=== PATIENT | male | born 1955 | race Caucasian/White ===

== ENCOUNTER 2017-02-19 00:51 | Emergency (ER) | payer OTHER ==
[2017-02-19 00:51] VITALS: BMI 29.6
== END 2017-02-19 01:59 | disposition left against medical advice (07) ==
LOC: ED 00:51
DX: Z02.89 Encounter for other administrative examinations (principal); I10 Essential (primary) hypertension

== ENCOUNTER 2017-02-19 08:00 | Emergency (ER) | payer OTHER ==
[2017-02-19 08:00] VITALS: BMI 29.6
[2017-02-19 08:30] VITALS: TEMP 97.7
--- NOTE | 2017-02-19 08:46 | ED PDOC ---
Arrival/HPI - General Chief Complaint: Headache Time Seen by Provider: 02/19/17 08:03 Historian: Patient - History of Present Illness Narrative History of Present Illness (Text): 02/19/17 08:35 Alan Gee is a 61 year old male, whose past medical history includes hypertension, who presents to the emergency department complaining of a right- sided pressure headache the extends to the back of his head since last night. Patient states that he has had a diffuse headache for the last 10 days where he "feels hot", and it was only until last night that the headache stayed on the right side and down his neck. Patient indicates that he also has neck pain and is warm to the right-side of his head. Pain is worse when he move his neck. Denies trauma. Denies fever. Denies numbness or weakness.Patient notes that he is more tired and has had headaches before but not one-sided. Patient denies any light sensitivity, weakness, tingling, chest pain, SOB, arm pain, nausea, slurring, difficulty speaking, or any other complaints at this time. PMD: Dr. Mcneal Time/Duration: 24 hours Symptom Onset: Gradual Symptom Course: Unchanged Activities at Onset: Light Context: Home Past Medical History - Provider Review Nursing Documentation Reviewed: Yes - Infectious Disease Hx of Infectious Diseases: None - Tetanus Immunization Tetanus Immunization: Unknown - Cardiac Hx Cardiac Disorders: Yes Hx Hypertension: Yes - Pulmonary Hx Respiratory Disorders: No - Neurological Hx Neurological Disorder: No - HEENT Hx HEENT Disorder: No - Renal Hx Renal Disorder: No - Endocrine/Metabolic Hx Endocrine Disorders: No - Hematological/Oncological Hx Blood Disorders: No - Integumentary Hx Dermatological Disorder: No - Musculoskeletal/Rheumatological Hx Musculoskeletal Disorders: No - Gastrointestinal Hx Gastrointestinal Disorders: No - Genitourinary/Gynecological Hx Genitourinary Disorders: No - Psychiatric Hx Psychophysiologic Disorder: No Hx Depression: No Hx Emotional Abuse: No Hx Physical Abuse: No Hx Substance Use: No - Suicidal Assessment Feels Threatened In Home Enviroment: No Family/Social History - Physician Review Nursing Documentation Reviewed: Yes Family/Social History: No Known Family HX Smoking Status: Never Smoked Hx Alcohol Use: No Hx Substance Use: No Hx Substance Use Treatment: No Allergies/Home Meds Allergies/Adverse Reactions: Allergies No Known Allergies Allergy (Verified 02/19/17 08:24) Home Medications: Home Meds Medication Instructions Recorded Confirmed amLODIPine [Norvasc] 10 mg PO DAILY 12/11/16 02/19/17 Review of Systems - Review of Systems Constitutional: Fatigue. absent: Fevers, Night Sweats Eyes: absent: Vision Changes, Photophobia, Eye Pain ENT: absent: Hearing Changes Respiratory: absent: SOB, Cough Cardiovascular: absent: Chest Pain, MELENDEZ Gastrointestinal: absent: Abdominal Pain, Stool Changes Genitourinary Male: absent: Dysuria, Frequency, Hematuria Musculoskeletal: Neck Pain. absent: Arthralgias Skin: absent: Rash, Pruritis Neurological: Headache. absent: Dizziness, Focal Weakness, Gait Changes, Disequilibrium, Seizure Endocrine: absent: Diaphoresis Hemo/Lymphatic: absent: Adenopathy Psychiatric: absent: Anxiety, Depression Physical Exam - Physical Exam Narrative Physical Exam (Text): Head: Atraumatic. Normocephalic. Eyes: PERRL. EOMI. Conjunctivae are not pale. Visual acuity and gutierrez intact. ENT: Mucous membranes are moist and intact. Oropharynx is clear and symmetric. No dental pain. No facial edema or erythema. No droop. No pain with eye movements. Neck: Supple. Full ROM. No JVD. No lymphadenopathy. Palpable right sided paraspinal cervical tenderness. Cardiovascular: Regular rate. Regular rhythm. No murmurs, rubs, or gallops. Distal pulses are 2+ and symmetric. Pulmonary/Chest: No evidence of respiratory distress. Clear to auscultation bilaterally. No wheezing, rales or rhonchi. Chest wall nontender. Abdominal: Soft and non-distended. There is no tenderness. No rebound, guarding, or rigidity. No organomegaly. Good bowel sounds. Back: No CVA tenderness. No midline tenderness. No rash or edema. Extremities: No edema. No cyanosis. No clubbing. Full range of motion in all extremities. No calf tenderness. Distal pulses intact. Skin: Skin is warm and dry. No petechiae. No purpura. No vesicular rash noted to face or shoulder or neck. Neurological: Alert, awake, and oriented. No facial droop. No slurred speech. Normal gait. Motor strength intact and symmetric. No sensory deficits. Psychiatric: Good eye contact. Normal interaction, affect, and behavior. Vital Signs Reviewed: Yes Vital Signs Temp Pulse Resp BP Pulse Ox 02/19/17 11:45 68 18 140/62 98 02/19/17 10:21 67 18 142/57 L 97 02/19/17 08:25 97.7 F 77 17 164/99 H 98 Temperature: Afebrile Blood Pressure: Hypertensive Pulse: Regular Respiratory Rate: Normal Appearance: Positive for: Well-Appearing, Non-Toxic, Comfortable Pain Distress: Mild Mental Status: Positive for: Alert and Oriented X 3 Medical Decision Making ED Course and Treatment: 02/19/17 08:35 Impression: 61 year old male complaining of a right-sided pressure headache since last night. Differential Diagnosis included but are not limited to: Cervical Strain vs. Tension Headache Plan: -- Head CT w/o contrast -- Labs -- Reassess and disposition Prior Visits: Notes and results from previous visits were reviewed. Patient was last seen in the emergency department on 07/06/14 for laceration to right index finger. Patient was discharged home. Progress Notes: Patient is afebrile. Mildly hypertensive. Headache not thunderclap, not worst in life. Neuro exam is intact with serial exams. Suspect possible musculoskeletal component to symptoms as patient has some palpable neck pain. With toradol, pain improved, BP improved after cloniding. No chest pain or shortness of breath. No numbness or weakness. Patient already taking Norvasc for HTN. I communicated with his PMD Dr. Sia Mcneal, stressed to PMD and patient need for follow-up in 1-2 days for repeat BP and reassessment of symptoms. Comfortable with no distress on discharge. - Lab Interpretations Lab Results: 02/19/17 09:00 02/19/17 09:00 Lab Results 02/19/17 09:00: Sodium 140, Potassium 4.0, Chloride 101, Carbon Dioxide 27, Anion Gap 16, BUN 17, Creatinine 0.8, Est GFR ( Amer) > 60, Est GFR (Non- Af Amer) > 60, Random Glucose 117 H, Calcium 8.9, Total Bilirubin 0.6, AST 31, ALT 60 H, Alkaline Phosphatase 117, Total Protein 7.4, Albumin 4.3, Globulin 3.1 , Albumin/Globulin Ratio 1.4 02/19/17 09:00: WBC 6.6, RBC 5.54, Hgb 15.6, Hct 44.9, MCV 81.0, MCH 28.2, MCHC 34.7, RDW 12.5, Plt Count 184, MPV 9.8, Gran % 62.3, Lymph % (Auto) 27.9, Harris % (Auto) 6.0, Eos % (Auto) 3.3, Baso % (Auto) 0.5, Gran # 4.14, Lymph # 1.9, Harris # 0.4, Eos # 0.2, Baso # 0.03 I have reviewed the lab results: Yes - RAD Interpretation Radiology Orders: 02/19/17 08:40 HEAD W/O CONTRAST [CT] Stat - Medication Orders Current Medication Orders: Discontinued Medications Clonidine HCl (Catapres) 0.1 mg PO ONCE STA Stop: 02/19/17 10:15 Ketorolac Tromethamine (Toradol) 30 mg IVP ONCE ONE Stop: 02/19/17 09:27 Last Admin: 02/19/17 09:45 Dose: 30 mg MAR Pain Assessment Document 02/19/17 09:45 [facility] (Rec: 02/19/17 09:45 [facility] [id number]) Pain Reassessment Is this a pain reassessment? Yes IVP Administration Document 02/19/17 09:45 [facility] (Rec: 02/19/17 09:45 [facility] [id number]) Charges for Administration # of IVP Administrations 1 - Scribe Statement The provider has reviewed the documentation as recorded by the [place] Provider Scribe Attestation: All medical record entries made by the Scribe were at my direction and personally dictated by me. I have reviewed the chart and agree that the record accurately reflects my personal performance of the history, physical exam, medical decision making, and the department course for this patient. I have also personally directed, reviewed, and agree with the discharge instructions and disposition. Disposition/Present on Arrival - Present on Arrival Any Indicators Present on Arrival: No History of DVT/PE: No History of Uncontrolled Diabetes: No Urinary Catheter: No History of Decub. Ulcer: No History Surgical Site Infection Following: None - Disposition Have Diagnosis and Disposition been Completed?: Yes Diagnosis: Headache, Neck pain, Hypertension Disposition: HOME/ ROUTINE Disposition Time: 10:00 Patient Plan: Discharge Condition: GOOD Discharge Instructions (ExitCare): Acute Headache (ED), Cervical Radiculopathy (ED), Hypertension (ED) Additional Instructions: For any return of headache, any dental pain, any facial swelling or drooping, ANY VISUAL SYMPTOMS, ANY RASH, any numbness or weakness, any chest pain or shortness of breath, any unsteadiness, any persistent or worsening of symptoms, get rechecked. I discussed your case with Dr. Mcneal. Follow-up with Dr. Mcneal in 1-2 days for recheck of your blood pressure and your symptoms. Return to ED immediately for any return or worsening of your symptoms. Prescriptions: Naproxen 250 mg PO BID PRN #10 tablet PRN Reason: Pain, Mild (1-3) Referrals: Payton Mcneal MD [Family Provider] - Follow up with primary Forms: [employer] ([place])
--- NOTE | 2017-02-19 09:11 | CT ---
PROCEDURE: CT HEAD WITHOUT CONTRAST. HISTORY: headache, hypertension COMPARISON: None available. TECHNIQUE: Axial computed tomography images were obtained through the head/brain without intravenous contrast. Radiation dose: Total exam DLP = 855 mGy-cm. This CT exam was performed using one or more of the following dose reduction techniques: Automated exposure control, adjustment of the mA and/or kV according to patient size, and/or use of iterative reconstruction technique. FINDINGS: HEMORRHAGE: No intracranial hemorrhage. BRAIN: No mass effect or edema. No atrophy or chronic microvascular ischemic changes. VENTRICLES: Unremarkable. No hydrocephalus. CALVARIUM: Unremarkable. PARANASAL SINUSES: Unremarkable as visualized. No significant inflammatory changes. MASTOID AIR CELLS: Unremarkable as visualized. No inflammatory changes. OTHER FINDINGS: None. IMPRESSION: Normal CT of the Head.
[2017-02-19 09:27] LABS: BASO # 0.03 K/mm3 (0.0-2.0); BASO % 0.5 % (0.0-3.0); EOS # 0.2 (0.0-0.7); EOS % 3.3 % (1.5-5.0); GRAN # 4.14 (1.4-6.5); GRAN % 62.3 % (50.0-68.0); HEMOGLOBIN 15.6 g/dL (14.0-18.0); LYMPH # 1.9 (1.2-3.4); LYMPH % 27.9 % (22.0-35.0); MEAN CORPUSCULAR HEMOGLOBIN 28.2 pg (25.0-35.0); MEAN CORPUSCULAR HGB CONC 34.7 g/dl (31.0-37.0); MEAN PLATELET VOLUME 9.8 fl (7.0-11.0); MONO # 0.4 (0.1-0.6); RBC 5.54 10^6/uL (3.5-6.1); RED CELL DISTRIBUTION WIDTH 12.5 % (11.5-14.5); WHITE BLOOD COUNT 6.6 10^3/ul (4.5-11.0)
[2017-02-19 09:30] LABS: ALB/GLOB RATIO 1.4 (1.1-1.8); ALBUMIN 4.3 g/dL (3.0-4.8); ALT/SGPT 60 U/L (7-56); AST/SGOT 31 U/L (17-59); BLOOD UREA NITROGEN 17 mg/dL (7-21); CALCIUM 8.9 mg/dL (8.4-10.5); GFR AFRICAN-AMERICAN > 60; GFR NON-AFRICAN AMERICAN > 60
[2017-02-19 10:22] VITALS: RESP 18
[2017-02-19 16:33] VITALS: BP 140/62; PULSE 68; O2SAT 98
== END 2017-02-19 11:45 | disposition home or self-care (01) ==
LOC: ED 08:00
DX: I10 Essential (primary) hypertension (principal); R51 Headache; M54.2 Cervicalgia
CPT/HCPCS: 70450; 80053; 85025; 96374; 99285; J1885

== ENCOUNTER 2017-03-30 02:19 | Observation (INO) | payer OTHER ==
[2017-03-30 02:30] VITALS: BMI 28.3
--- NOTE | 2017-03-30 03:48 | ED PDOC ---
Arrival/HPI - General Chief Complaint: High Blood Pressure Time Seen by Provider: 03/30/17 03:05 Historian: Patient - History of Present Illness Narrative History of Present Illness (Text): 03/30/17 03:40 61 year old male, whose past medical history include hypertension, presents to the emergency department complaining of palpitations and elevated blood pressure that began a few days ago.States felt like "my heart stopped at times" . Patient denies any fever, chills, cough, chest pain, shortness of breath, nausea, vomiting, diarrhea, urinary symptoms, back pain, neck pain, headache, dizziness, or any other complaints. PMD: Dr. Mcneal Time/Duration: Other (few days ) Symptom Onset: Sudden Symptom Course: Unchanged Activities at Onset: Light Context: Home Past Medical History - Provider Review Nursing Documentation Reviewed: Yes - Infectious Disease Hx of Infectious Diseases: None - Tetanus Immunization Tetanus Immunization: Unknown - Cardiac Hx Cardiac Disorders: Yes Hx Hypertension: Yes - Pulmonary Hx Respiratory Disorders: No - Neurological Hx Neurological Disorder: No - HEENT Hx HEENT Disorder: No - Renal Hx Renal Disorder: No - Endocrine/Metabolic Hx Endocrine Disorders: No - Hematological/Oncological Hx Blood Disorders: No - Integumentary Hx Dermatological Disorder: No - Musculoskeletal/Rheumatological Hx Musculoskeletal Disorders: No - Gastrointestinal Hx Gastrointestinal Disorders: No - Genitourinary/Gynecological Hx Genitourinary Disorders: No - Psychiatric Hx Psychophysiologic Disorder: No Hx Depression: No Hx Emotional Abuse: No Hx Physical Abuse: No Hx Substance Use: No - Suicidal Assessment Feels Threatened In Home Enviroment: No Family/Social History - Physician Review Nursing Documentation Reviewed: Yes Family/Social History: No Known Family HX Smoking Status: Never Smoked Hx Alcohol Use: No Hx Substance Use: No Hx Substance Use Treatment: No Allergies/Home Meds Allergies/Adverse Reactions: Allergies No Known Allergies Allergy (Verified 02/19/17 08:24) Home Medications: Home Meds Medication Instructions Recorded Confirmed amLODIPine [Norvasc] 10 mg PO DAILY 12/11/16 03/30/17 Review of Systems - Physician Review All systems were reviewed & negative as marked: Yes - Review of Systems Constitutional: absent: Fevers, Other (Chills) Respiratory: absent: Cough Cardiovascular: Palpitations Gastrointestinal: absent: Diarrhea, Nausea, Vomiting Genitourinary Male: absent: Dysuria, Frequency, Hematuria Musculoskeletal: absent: Back Pain, Neck Pain Neurological: absent: Headache, Dizziness Physical Exam Vital Signs Reviewed: Yes Vital Signs Temp Pulse Resp BP Pulse Ox 03/30/17 15:45 79 18 129/79 96 03/30/17 11:44 73 18 146/89 03/30/17 11:15 73 18 146/89 96 03/30/17 10:36 131/80 03/30/17 10:00 98.6 F 70 16 119/77 99 03/30/17 09:30 69 18 128/79 100 03/30/17 07:30 64 18 125/78 98 03/30/17 07:07 97.7 F 67 18 127/84 95 03/30/17 04:20 97.7 F 68 16 137/83 97 Temperature: Afebrile Blood Pressure: Normal Pulse: Regular Respiratory Rate: Normal Appearance: Positive for: Well-Appearing, Non-Toxic, Comfortable Pain Distress: None Mental Status: Positive for: Alert and Oriented X 3 - Systems Exam Head: Present: Atraumatic, Normocephalic Pupils: Present: PERRL Extroacular Muscles: Present: EOMI Conjunctiva: Present: Normal Mouth: Present: Moist Mucous Membranes Neck: Present: Normal Range of Motion Respiratory/Chest: Present: Clear to Auscultation, Good Air Exchange. No: Respiratory Distress, Accessory Muscle Use Cardiovascular: Present: Regular Rate and Rhythm, Normal S1, S2. No: Murmurs Abdomen: Present: Normal Bowel Sounds. No: Tenderness, Distention, Peritoneal Signs Back: Present: Normal Inspection Upper Extremity: Present: Normal Inspection. No: Cyanosis, Edema Lower Extremity: Present: Normal Inspection. No: Edema Neurological: Present: GCS=15, CN II-XII Intact, Speech Normal Skin: Present: Warm, Dry, Normal Color. No: Rashes Psychiatric: Present: Alert, Oriented x 3, Normal Insight, Normal Concentration Medical Decision Making ED Course and Treatment: 03/30/17 03:40 Impression: 61 year old male presents complaining of palpitations and elevated blood pressure for the past few days. Plan: -- EKG -- Labs -- Chest X-ray -- Reassess and disposition Progress Notes: EKG shows NSR at 72 BPM with incomplete RBBB. No acute changes. Interpreted by me. 03/30/17 04:23 CXR Impression: As read by me, no acute processes. 03/30/17 05:27 Case discussed with medical concierge and Dr. Marquez who is aware and agrees with the plan. Accepts patient into his service. 03/30/17 05:55 Pt. on further interview now admits to a hx. of intermittent chest pain as well although stating he is pain free presently. - Lab Interpretations Lab Results: 03/30/17 03:35 03/30/17 03:35 Lab Results 03/30/17 03:35: WBC 7.5, RBC 5.39, Hgb 14.9, Hct 44.0, MCV 81.6, MCH 27.6, MCHC 33.9, RDW 13.3, Plt Count 167, MPV 10.2 03/30/17 03:35: Sodium 141, Potassium 3.6, Chloride 103, Carbon Dioxide 26, Anion Gap 15, BUN 15, Creatinine 0.8, Est GFR ( Amer) > 60, Est GFR (Non- Af Amer) > 60, Random Glucose 103, Calcium 9.1, Total Bilirubin 0.7, AST 30, ALT 56, Alkaline Phosphatase 111, Lactate Dehydrogenase 470, Total Creatine Kinase 113, Troponin I < 0.01, Total Protein 7.2, Albumin 4.2, Globulin 3.0, Albumin/Globulin Ratio 1.4 03/30/17 03:35: PT 11.6, INR 1.02, APTT 34.6 I have reviewed the lab results: Yes - RAD Interpretation Radiology Orders: 03/30/17 03:15 CHEST PORTABLE [RAD] Stat - EKG Interpretation Interpreted by ED Physician: Yes Type: 12 lead EKG - Medication Orders Current Medication Orders: Amlodipine Besylate (Norvasc) 10 mg PO DAILY [facility] Last Admin: 03/30/17 10:36 Dose: 10 mg LIZET Blood Pressure Document 03/30/17 10:36 ROSSI (Rec: 03/30/17 10:36 [id number]) Blood Pressure Blood Pressure (100/60-150/90) 131/80 Montelukast Sodium (Singulair) 10 mg PO HS DIRK Naproxen (Anaprox) 275 mg PO BID PRN PRN Reason: Pain, Mild (1-3) Last Admin: 03/30/17 17:40 Dose: 275 mg MAR Pain Assessment Document 03/30/17 17:40 (Rec: 03/30/17 17:40 [id number]) Pain Reassessment Is this a pain reassessment? No Presence of Pain Presence of Pain Yes Location Pain Location Body Manager Product Design Description Description Pressure Pantoprazole Sodium (Protonix Ec Tab) 40 mg PO 0600 [facility] Discontinued Medications Aspirin (Aspirin) 325 mg PO ONCE STA Stop: 03/30/17 05:58 Last Admin: 03/30/17 06:24 Dose: 325 mg - Scribe Statement The provider has reviewed the documentation as recorded by the Ren Schmitt Provider Scribe Attestation: All medical record entries made by the Ren were at my direction and personally dictated by me. I have reviewed the chart and agree that the record accurately reflects my personal performance of the history, physical exam, medical decision making, and the department course for this patient. I have also personally directed, reviewed, and agree with the discharge instructions and disposition. Disposition/Present on Arrival - Present on Arrival Any Indicators Present on Arrival: No History of DVT/PE: No History of Uncontrolled Diabetes: No Urinary Catheter: No History of Decub. Ulcer: No History Surgical Site Infection Following: None - Disposition Have Diagnosis and Disposition been Completed?: Yes Diagnosis: Heart palpitations, Chest pain Disposition: HOSPITALIZED Disposition Time: 05:26 Patient Plan: Observation Patient Problems: Current Active Problems Problem Status Onset Heart palpitations Acute Condition: STABLE
[2017-03-30 03:53] LABS: ALB/GLOB RATIO 1.4 (1.1-1.8); ALBUMIN 4.2 g/dL (3.0-4.8); ALT/SGPT 56 U/L (7-56); AST/SGOT 30 U/L (17-59); BLOOD UREA NITROGEN 15 mg/dL (7-21); CALCIUM 9.1 mg/dL (8.4-10.5); GFR AFRICAN-AMERICAN > 60; GFR NON-AFRICAN AMERICAN > 60
[2017-03-30 03:54] LABS: INR 1.02 (0.93-1.08); PARTIAL THROMBOPLASTIN TIME 34.6 Seconds (25.1-36.5); PROTHROMBIN TIME 11.6 SECONDS (9.4-12.5)
[2017-03-30 03:55] LABS: HEMOGLOBIN 14.9 g/dL (14.0-18.0); MEAN CELL VOLUME 81.6 fl (80.0-105.0); MEAN CORPUSCULAR HEMOGLOBIN 27.6 pg (25.0-35.0); MEAN CORPUSCULAR HGB CONC 33.9 g/dl (31.0-37.0); MEAN PLATELET VOLUME 10.2 fl (7.0-11.0); RBC 5.39 10^6/uL (3.5-6.1); RED CELL DISTRIBUTION WIDTH 13.3 % (11.5-14.5); WHITE BLOOD COUNT 7.5 10^3/ul (4.5-11.0)
[2017-03-30 04:04] LABS: TROPONIN I < 0.01 ng/mL
--- NOTE | 2017-03-30 06:58 | CP.PCM.HP ---
<TruongNhan ojeda - Last Filed: 03/30/17 06:26> History of Present Illness - History of Present Illness History of Present Illness: H/P For Dr. Marquez CC: Palpitations, CP HPI: 61 year old male with past medical history significant for seasonal allergies and hypertension presents with 3 day duration of left sided, non radiating 2/10 chest pain for which he did not take any medications. Patient also states that he feels like his 'heart stops' periodically. No shortness of breath, no other associated symptoms. Recent myocardial perfusion test normal, patient has never had an UT or Cath. Past Surgical History: denies Past Medical History: HTN, allergies Allergies: NKDA Social History: denies alcohol, illicits, tobacco Hospitalizations: recent negative stress test Family History: no extensive cardiac history, family in [place] Medications: xyzal, cingulair, amlodipine Review of Systems: 12 point ROS negative except HPI Present on Admission - Present on Admission Any Indicators Present on Admission: No Past Patient History - Infectious Disease Hx of Infectious Diseases: None - Tetanus Immunizations Tetanus Immunization: Unknown - Past Social History Smoking Status: Never Smoked - CARDIAC Hx Cardiac Disorders: Yes Hx Hypertension: Yes - PULMONARY Hx Respiratory Disorders: No - NEUROLOGICAL Hx Neurological Disorder: No - HEENT Hx HEENT Problems: No - RENAL Hx Chronic Kidney Disease: No - ENDOCRINE/METABOLIC Hx Endocrine Disorders: No - HEMATOLOGICAL/ONCOLOGICAL Hx Blood Disorders: No - INTEGUMENTARY Hx Dermatological Problems: No - MUSCULOSKELETAL/RHEUMATOLOGICAL Hx Musculoskeletal Disorders: No - GASTROINTESTINAL Hx Gastrointestinal Disorders: No - GENITOURINARY/GYNECOLOGICAL Hx Genitourinary Disorders: No - PSYCHIATRIC Hx Psychophysiologic Disorder: No Hx Depression: No Hx Emotional Abuse: No Hx Physical Abuse: No Hx Substance Use: No - SURGICAL HISTORY Hx Surgeries: No Meds Allergies/Adverse Reactions: Allergies Allergy/AdvReac Type Severity Reaction Status Date / Time No Known Allergies Allergy Verified 02/19/17 08:24 Physical Exam - Constitutional Appears: Well - Head Exam Head Exam: ATRAUMATIC, NORMAL INSPECTION, NORMOCEPHALIC - Eye Exam Eye Exam: EOMI, Normal appearance, PERRL Pupil Exam: NORMAL ACCOMODATION, PERRL - ENT Exam ENT Exam: Mucous Membranes Moist, Normal Exam - Neck Exam Neck exam: Positive for: Normal Inspection - Respiratory Exam Respiratory Exam: Clear to Auscultation Bilateral, NORMAL BREATHING PATTERN - Cardiovascular Exam Cardiovascular Exam: REGULAR RHYTHM - GI/Abdominal Exam GI & Abdominal Exam: Normal Bowel Sounds, Soft. absent: Tenderness - Rectal Exam Rectal Exam: NORMAL INSPECTION - Extremities Exam Extremities exam: Positive for: normal inspection - Back Exam Back exam: NORMAL INSPECTION - Neurological Exam Neurological exam: Alert, CN II-XII Intact, Normal Gait, Oriented x3, Reflexes Normal - Psychiatric Exam Psychiatric exam: Normal Affect, Normal Mood - Skin Skin Exam: Dry, Intact, Normal Color, Warm Results - Vital Signs Recent Vital Signs: Last Vital Signs Temp 97.7 F 03/30/17 04:20 Pulse 68 03/30/17 04:20 Resp 16 03/30/17 04:20 BP 137/83 03/30/17 04:20 Pulse Ox 97 03/30/17 04:20 - Labs Result Diagrams: 03/30/17 03:35 03/30/17 03:35 Assessment & Plan - Assessment and Plan (Free Text) Assessment: 61 year old male presenting with palpitations and chest pain of 3 day duration First troponin negative EKG shows incomplete RBBB. Recent myocardial perfusion normal. Plan: Chest Pain rule out ACS - F/u BEVERLY, EKG's Palpitations - F/u TSH Seasonal Allergies - Xyzal - Cingulair GI/DVT Prophylaxis - Protonix/SCDs <Milla Marquez - Last Filed: 03/30/17 07:28> Results - Vital Signs Recent Vital Signs: Last Vital Signs Temp 97.7 F 03/30/17 07:07 Pulse 67 03/30/17 07:07 Resp 18 03/30/17 07:07 BP 127/84 03/30/17 07:07 Pulse Ox 95 03/30/17 07:07 - Labs Result Diagrams: 03/30/17 03:35 03/30/17 03:35 Attending/Attestation - Attestation I have personally seen and examined this patient.: Yes I have fully participated in the care of the patient.: Yes I have reviewed all pertinent clinical information: Yes Notes (Text): 03/30/17 07:26 Patient was seen when he was in bed # 16 in the ER. Agree with history , physical examination, assessment and plan. Following are my impressions. Chest pain-left sided. Palpitations. Hypertension. Headaches. Common cold. Heart stops. Seasonal allergies. Family history Alzheimer's. Hyperopia. History of urine abnormal test. Incomplete right bundle branch block. Overweight with BMI 28.3 kg/m2.
[2017-03-30] MEDS ORDERED: Naproxen 275 mg Tab PO PRN (07:10)
--- NOTE | 2017-03-30 08:27 | CARD ---
APPROVED REPORT EKG Measurement Heart [id number] <Conclusion> Normal sinus rhythm RVCD
--- NOTE | 2017-03-30 09:42 | RAD ---
HISTORY: palpitations COMPARISON: No prior. FINDINGS: LUNGS: Mild bibasilar atelectasis and or scarring changes. PLEURA: No significant pleural effusion identified, no pneumothorax apparent. CARDIOVASCULAR: Normal. OSSEOUS STRUCTURES: No significant abnormalities. VISUALIZED UPPER ABDOMEN: Normal. OTHER FINDINGS: None. IMPRESSION: Mild bibasilar atelectasis or scarring changes.
[2017-03-30 12:40] LABS: TROPONIN I < 0.01 ng/mL
--- NOTE | 2017-03-30 13:43 | CON ---
DATE: 03/30/2017 LOCATION: Emergency room 600, bed 3. CHIEF COMPLAINT: Palpitation, chest discomfort. HISTORY OF PRESENT ILLNESS: A 61-year-old male, he is known to have hypertension since last 1 year on Norvasc 10 mg a day. He states since last three days he is feeling that from evening till morning he feels palpitation off and on, feel like heart skipping a beat, also sometime get dull chest pain. Denies any dizziness, shortness of breath, syncope. Patient is now lying flat in bed without any palpitations, chest pain, shortness of breath. PAST MEDICAL HISTORY: Patient known to have hypertension. PERSONAL HISTORY: Denies smoking, denies drinking, takes one cup of tea a day. ALLERGIES: PATIENT DENIES ANY MEDICATION ALLERGY. FAMILY HISTORY: Positive for hypertension. MEDICATIONS AT HOME: Norvasc 10 mg daily, sometime takes Naprosyn for pain. PHYSICAL EXAMINATION: VITAL SIGNS: Blood pressure 125/78, respirations 18, pulse 64, temperature 97.7. HEENT: Head is normocephalic. Eyes: Pupils are normal. Conjunctivae normal. Nose and throat normal. NECK: JVP low. Carotids are equal. THORAX: AP diameter normal. LUNGS: Clear. CARDIOVASCULAR: S1 and S2. ABDOMEN: Soft, nontender. No organomegaly. Bowel sounds normal. EXTREMITIES: No clubbing, no cyanosis. LABORATORY DATA AND IMAGING: WBC 7.5, hemoglobin 14.9, hematocrit 44.0 and platelets 167. Sodium 141, potassium 3.6, BUN 15, creatinine 0.8. Calcium, bilirubin, AST, ALT, troponin, total protein, albumin, globulin normal. EKG showed regular sinus rhythm. Patient had a nuclear stress test as outpatient on 12/11/2016, which was negative with normal LV ejection fraction of 72%. Patient also had echo in the office as outpatient. DIAGNOSES: Palpitation, atypical chest pain, hypertension. PLAN: Monitor the patient for any arrhythmia. Patient already on naproxen 275 b.i.d. p.r.n., amlodipine 10 daily, Protonix 40 daily, Singulair 10 mg at bedtime. We will do lipid profile and TSH. We will follow. Mohammad Hernandez, MD
[2017-03-30 17:50] LABS: TROPONIN I < 0.01 ng/mL
[2017-03-31 00:21] VITALS: RESP 20
[2017-03-31] MEDS ORDERED: Pantoprazole 40 mg EC Tab PO SCH (06:00)
[2017-03-31 06:10] VITALS: TEMP 98.5; O2SAT 94
[2017-03-31 06:19] LABS: HEMOGLOBIN 15.1 g/dL (14.0-18.0); MEAN CELL VOLUME 81.9 fl (80.0-105.0); MEAN CORPUSCULAR HGB CONC 34.2 g/dl (31.0-37.0); MEAN PLATELET VOLUME 10.3 fl (7.0-11.0); RBC 5.4 10^6/uL (3.5-6.1)
[2017-03-31 09:29] LABS: ALB/GLOB RATIO 1.3 (1.1-1.8); ALBUMIN 4.1 g/dL (3.0-4.8); ALT/SGPT 42 U/L (7-56); AST/SGOT 29 U/L (17-59); BLOOD UREA NITROGEN 19 mg/dL (7-21); CALCIUM 9.1 mg/dL (8.4-10.5); GFR AFRICAN-AMERICAN > 60; GFR NON-AFRICAN AMERICAN > 60; HDL CHOLESTEROL 32 mg/dL (29-60)
[2017-03-31 09:39] LABS: LDL CHOLESTEROL 87 mg/dL (0-129)
[2017-03-31 10:22] VITALS: BP 130/79
[2017-03-31] MEDS ORDERED: Metoprolol Succinate 25 mg XL Tab PO SCH (10:49)
[2017-03-31 11:50] VITALS: PULSE 82
--- NOTE | 2017-03-31 12:28 | PN ---
DATE: 03/31/2017 REASON FOR THE CONSULTATION AND FOLLOWUP: Palpitation. SUBJECTIVE: Patient denies any chest pain, shortness of breath, or any palpitations. OBJECTIVE: GENERAL: Not in apparent distress. VITAL SIGNS: Temperature is afebrile, heart rate , and blood pressure 120/78. HEENT: PERRLA, intact. NECK: Supple. No carotid bruit or thyromegaly. CHEST: Clear to auscultation. HEART: S1 and S2, regular. ABDOMEN: Soft. EXTREMITIES: Clubbing and cyanosis negative. LABORATORY DATA: Blood workup as follows: WBC 7, hemoglobin 15, hematocrit 44.2, and platelet count 159. Chemistry shows sodium 140, potassium is 3.9, chloride 105, carbon dioxide 26, anion gap of 13. BUN 19, creatinine 0.8. Troponin 0.01 x3 negative. Total cholesterol 152, LDL 87, HDL 32, triglycerides 210. TSH 2.79. IMPRESSION: Palpitation, atypical chest pain. No evidence of acute myocardial infarction. History of stress test on 12/11/2016, was negative. Normal left ventricular function. RECOMMENDATION: We will put low dose of beta-shashi starting now and we will discontinue telemetry. Further recommendation as outpatient. We will follow. Thank you for providing us the opportunity in taking care of patient, Alan Gee. Alan Acosta MD
--- NOTE | 2017-04-01 02:41 | CP.PCM.DIS ---
<Alexsander Fabian - Last Filed: 04/01/17 02:43> Provider - Provider Date of Admission: 03/30/17 05:27 Attending physician: Yonatan Trejo MD Consults: Cardiology: Dr. Lazaro Time Spent in preparation of Discharge (in minutes): 45 Diagnosis - Discharge Diagnosis (1) Right bundle branch block Status: Chronic Priority: High (2) Heart palpitations Status: Chronic Priority: Medium Hospital Course - Lab Results Lab Results: Most Recent Lab Values WBC 7.0 10^3/ul (4.5-11.0) 03/31/17 05:40 RBC 5.40 10^6/uL (3.5-6.1) 03/31/17 05:40 Hgb 15.1 g/dL (14.0-18.0) 03/31/17 05:40 Hct 44.2 % (42.0-52.0) 03/31/17 05:40 MCV 81.9 fl (80.0-105.0) 03/31/17 05:40 MCH 28.0 pg (25.0-35.0) 03/31/17 05:40 MCHC 34.2 g/dl (31.0-37.0) 03/31/17 05:40 RDW 13.0 % (11.5-14.5) 03/31/17 05:40 Plt Count 169 10^3/uL (120.0-450.0) 03/31/17 05:40 MPV 10.3 fl (7.0-11.0) 03/31/17 05:40 PT 11.6 SECONDS (9.4-12.5) 03/30/17 03:35 INR 1.02 (0.93-1.08) 03/30/17 03:35 APTT 34.6 Seconds (25.1-36.5) 03/30/17 03:35 Sodium 140 mmol/L (132-148) 03/31/17 09:00 Potassium 3.9 mmol/L (3.6-5.0) 03/31/17 09:00 Chloride 105 mmol/L (98-107) 03/31/17 09:00 Carbon Dioxide 26 mmol/L (21-33) 03/31/17 09:00 Anion Gap 13 (10-20) 03/31/17 09:00 BUN 19 mg/dL (7-21) 03/31/17 09:00 Creatinine 0.8 mg/dl (0.8-1.5) 03/31/17 09:00 Est GFR ( Amer) > 60 03/31/17 09:00 Est GFR (Non-Af Amer) > 60 03/31/17 09:00 Random Glucose 109 mg/dL (70-110) 03/31/17 09:00 Calcium 9.1 mg/dL (8.4-10.5) 03/31/17 09:00 Total Bilirubin 1.1 mg/dL (0.2-1.3) 03/31/17 09:00 AST 29 U/L (17-59) 03/31/17 09:00 ALT 42 U/L (7-56) 03/31/17 09:00 Alkaline Phosphatase 105 U/L (38-126) 03/31/17 09:00 Lactate Dehydrogenase 470 U/L (333-699) 03/30/17 03:35 Total Creatine Kinase 90 U/L (35-230) 03/30/17 17:23 Troponin I < 0.01 ng/mL 03/30/17 17:23 Total Protein 7.2 g/dL (5.8-8.3) 03/31/17 09:00 Albumin 4.1 g/dL (3.0-4.8) 03/31/17 09:00 Globulin 3.1 gm/dL 03/31/17 09:00 Albumin/Globulin Ratio 1.3 (1.1-1.8) 03/31/17 09:00 Triglycerides 210 mg/dL (35-160) H 03/31/17 09:00 Cholesterol 152 mg/dL (130-200) 03/31/17 09:00 LDL Cholesterol Direct 87 mg/dL (0-129) 03/31/17 09:00 HDL Cholesterol 32 mg/dL (29-60) 03/31/17 09:00 TSH 3rd Generation 2.79 mIU/mL (0.46-4.68) 03/31/17 05:40 - Hospital Course Hospital Course: Patient is a 61 male with past medical history significant for seasonal allergies and hypertension who presented with 3 day duration of left sided, non radiating 2/10 chest pain for which he did not take any medications. Patient also stated that he felt as if his 'heart stops' periodically. No shortness of breath, no other associated symptoms. Recent myocardial perfusion test and echocardiogram done with Dr. Hernandez as outpatient were found to be normal, patient has never had an WI or Cath. Patient was kept overnight for EKG monitoring. Overnight strips were reviewed by internal medicine and cardiology staff and no acute abnormalities were found to have taken place overnight. Patient was instructed to follow up with primary care physician and juke box servicer as outpatient regarding admission. Patient was in agreement with plan and discharged with metroprolol succinate and singulair. Case reviewed and discussed with Dr. Neil Fabian PGY1 Discharge Exam - Head Exam Head Exam: ATRAUMATIC, NORMAL INSPECTION, NORMOCEPHALIC - Eye Exam Eye Exam: EOMI, Normal appearance - ENT Exam ENT Exam: Mucous Membranes Moist - Respiratory Exam Respiratory Exam: Clear to PA & Lateral, Rhonchi, Wheezes - Cardiovascular Exam Cardiovascular Exam: REGULAR RHYTHM, +S1, +S2 - GI/Abdominal Exam GI & Abdominal Exam: Normal Bowel Sounds, Unremarkable - Back Exam Back exam: FULL ROM, NORMAL INSPECTION - Neurological Exam Neurological exam: Alert, CN II-XII Intact, Oriented x3 - Psychiatric Exam Psychiatric exam: Normal Affect, Normal Mood - Skin Skin Exam: Intact, Normal Color, Warm Discharge Plan - Discharge Medications Prescriptions: Metoprolol Succinate [Toprol XL] 25 mg PO DAILY #14 tab Montelukast [Singulair] 10 mg PO HS #14 tab - Follow Up Plan Condition: STABLE Disposition: HOME/ ROUTINE Instructions: Chest Pain (DC), Palpitations (DC) Additional Instructions: Discharge Instructions 1. Follow up with Dr. Mcneal, primary care doctor, within 1 week 2. Follow up with Dr. Lazaro, juke box servicer, within 1 week 3. Limit the use of naproxen as it can increased risk of peptic ulcer disease. Alternative is tylenol. Do not exceed 3g/day Meds ---- Continue Amlodipine New med: Singulair 10 HS Toprol XL 25 Referrals: Payton Mcneal MD [Staff Provider] - Alan Hernandez MD [Staff Provider] - <Yonatan Trejo - Last Filed: 04/01/17 07:28> Provider - Provider Date of Admission: 03/30/17 05:27 Attending physician: Yonatan Trejo MD Hospital Course - Lab Results Lab Results: Most Recent Lab Values WBC 7.0 10^3/ul (4.5-11.0) 03/31/17 05:40 RBC 5.40 10^6/uL (3.5-6.1) 03/31/17 05:40 Hgb 15.1 g/dL (14.0-18.0) 03/31/17 05:40 Hct 44.2 % (42.0-52.0) 03/31/17 05:40 MCV 81.9 fl (80.0-105.0) 03/31/17 05:40 MCH 28.0 pg (25.0-35.0) 03/31/17 05:40 MCHC 34.2 g/dl (31.0-37.0) 03/31/17 05:40 RDW 13.0 % (11.5-14.5) 03/31/17 05:40 Plt Count 169 10^3/uL (120.0-450.0) 03/31/17 05:40 MPV 10.3 fl (7.0-11.0) 03/31/17 05:40 PT 11.6 SECONDS (9.4-12.5) 03/30/17 03:35 INR 1.02 (0.93-1.08) 03/30/17 03:35 APTT 34.6 Seconds (25.1-36.5) 03/30/17 03:35 Sodium 140 mmol/L (132-148) 03/31/17 09:00 Potassium 3.9 mmol/L (3.6-5.0) 03/31/17 09:00 Chloride 105 mmol/L (98-107) 03/31/17 09:00 Carbon Dioxide 26 mmol/L (21-33) 03/31/17 09:00 Anion Gap 13 (10-20) 03/31/17 09:00 BUN 19 mg/dL (7-21) 03/31/17 09:00 Creatinine 0.8 mg/dl (0.8-1.5) 03/31/17 09:00 Est GFR ( Amer) > 60 03/31/17 09:00 Est GFR (Non-Af Amer) > 60 03/31/17 09:00 Random Glucose 109 mg/dL (70-110) 03/31/17 09:00 Calcium 9.1 mg/dL (8.4-10.5) 03/31/17 09:00 Total Bilirubin 1.1 mg/dL (0.2-1.3) 03/31/17 09:00 AST 29 U/L (17-59) 03/31/17 09:00 ALT 42 U/L (7-56) 03/31/17 09:00 Alkaline Phosphatase 105 U/L (38-126) 03/31/17 09:00 Lactate Dehydrogenase 470 U/L (333-699) 03/30/17 03:35 Total Creatine Kinase 90 U/L (35-230) 03/30/17 17:23 Troponin I < 0.01 ng/mL 03/30/17 17:23 Total Protein 7.2 g/dL (5.8-8.3) 03/31/17 09:00 Albumin 4.1 g/dL (3.0-4.8) 03/31/17 09:00 Globulin 3.1 gm/dL 03/31/17 09:00 Albumin/Globulin Ratio 1.3 (1.1-1.8) 03/31/17 09:00 Triglycerides 210 mg/dL (35-160) H 03/31/17 09:00 Cholesterol 152 mg/dL (130-200) 03/31/17 09:00 LDL Cholesterol Direct 87 mg/dL (0-129) 03/31/17 09:00 HDL Cholesterol 32 mg/dL (29-60) 03/31/17 09:00 TSH 3rd Generation 2.79 mIU/mL (0.46-4.68) 03/31/17 05:40 Attending/Attestation - Attestation I have personally seen and examined this patient.: Yes I have fully participated in the care of the patient.: Yes I have reviewed all pertinent clinical information, including history, physical exam and plan: Yes Notes (Text): 04/01/17 07:25 Attending note; Patient seen and examined with resident. Patient is a 61 male with past medical history significant for seasonal allergies and hypertension who presented with 3 day duration of left sided, non radiating 2/10 chest pain for which he did not take any medications. Patient was admitted to telemetry and monitored closely. Cardiac enzymes negative. Patients complained of episode of palpitations. air sampling and monitoring without any significant event. Case discussed with cardiology in detail. Patient had recent stress test and echo in Dr. Hernandez's office which was normal. Patient was cleared by cardiology for discharge. Patient will follow up with PMD Dr. Pedro. Patient also will follow-up with cardiology Dr. Hernandez.
== END 2017-03-31 13:39 | disposition home or self-care (01) ==
LOC: ED 02:19 → ERH 05:27 → 2RNO 16:05
PROVIDERS: ADMIT Internal Medicine; ATTEND Internal Medicine
DX: I45.10 Unspecified right bundle-branch block (principal); R07.89 Other chest pain; R00.2 Palpitations; I10 Essential (primary) hypertension; J30.2 Other seasonal allergic rhinitis
CPT/HCPCS: 36415; 71045; 80053; 80061; 82550; 82554; 83615; 84443; 84484; 85027; 85610; 85730; 93005; 99285; G0378